=== PATIENT | female | born 1975 ===

== ENCOUNTER 2022-06-25 04:46 | Day surgery (SDC) | payer OTHER ==
[2022-06-24 16:08] VITALS: BMI 28.8
[2022-06-25 14:07] VITALS: TEMP 97.5
[2022-06-25] MEDS ORDERED: ACETAMINOPHEN 500 MG TABLET (FP) PO ONE (14:09)
[2022-06-25] MEDS ORDERED: SIMETHICONE 80 MG TAB.CHEW (FP) PO PRN (14:11)
[2022-06-25 14:46] VITALS: BP 125/77; PULSE 76; RESP 21
== END 2022-06-25 14:45 | disposition home or self-care (01) ==
LOC: JASU-ENDO 04:46
PROVIDERS: ATTEND Internal Medicine Gastroenterology
PROC: 0D578ZZ Destruction of Stomach, Pylorus, Via Natural or Artificial Opening Endoscopic (ICD-10-PCS; principal; 2022-06-25 12:30)
DX: K31.A0 Gastric intestinal metaplasia, unspecified (principal); K31.7 Polyp of stomach and duodenum
CPT/HCPCS: 81025; 88305-TC; 88312-TC; 88342-TC